=== PATIENT | male | born 1970 | race Caucasian/White ===

== ENCOUNTER 2022-08-04 08:28 | Emergency (ER) | payer BC ==
--- OUTSIDE RECORDS SUMMARY | 2022-08-04 08:31 | XMS REPORT | Continuity of Care Document ---
:1970 Author Organization [facility] t Address [address] [place] [address] Care Team Providers Name Role Phone Pcp, Patient Does Not Have A Primary Care Physician +[id number] Vaccine, Jose Smith Attending Clinician Unavailable Lexy Jackson Attending Clinician LEXY PLEITEZ Attending Clinician Unavailable Jose Short Attending Clinician Unavailable Maycol PARHAM, Fahad Attending Clinician FAHAD SEVERINO Attending Clinician Unavailable Payers Payer Name Policy Type Policy Number Effective Date Expiration Date S ource Problems This patient has no known problems. Allergies, Adverse Reactions, Alerts Allergy Allergy Status Severity Reaction(s) Onset Inactive Treating Comm ents Source Name Type Date Date Clinician NO KNOWN Drug Active Univers ALLERGIE Class ity of S [facility] Social History Social Habit Start Date Stop Date Quantity Comments Source Exposure to 2022-07-23 2022-08-02 Not sure [facility] SARS-CoV-2 (event) 00:00:00 09:38:00 [facility] Branch Sex Ass[birth year] [facility] 00:00:00 00:00:00 Smoking Status Start Date Stop Date Source Tobacco smoking consumption unknown [facility] Medications This patient has no known medications. 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 TOP BOOSTER) Influenza Virus 2022-08-02 Completed Universit y of Vaccine Quad IM, 00:00:00 [facility] dical Preserv and ABX Branch Free 6 MO-64 YRS Influenza Virus 2022-08-02 Completed Universit y of Vaccine Quad IM, 00:00:00 [facility] dical Preserv and ABX Branch Free 6 MO-64 YRS SARS-COV-2 COVID-19 2021-08-09 Completed Unive rsity of PFIZER VACCINE 00:00:00 [facility] SARS-COV-2 COVID-19 2021-08-09 Completed Unive rsity of PFIZER VACCINE 00:00:00 [facility] SARS-COV-2 COVID-19 2021-01-20 Completed Unive rsity of PFIZER VACCINE 00:00:00 [facility] SARS-COV-2 COVID-19 2021-01-20 Completed Unive rsity of PFIZER VACCINE 00:00:00 [facility] SARS-COV-2 COVID-19 2020-12-30 Completed Unive rsity of PFIZER VACCINE 00:00:00 [facility] SARS-COV-2 COVID-19 2020-12-30 Completed Unive rsity of PFIZER VACCINE 00:00:00 [facility] FLUCELVAX QUAD PF 2019-06-[address] 00:00:00 Hospital Procedures Procedure Date / Time Performed Performing Clinician Case ni SARS-COV-2 COVID-19 2022-08-03 15:04:26 Doctor Unassigned, [facility] Name [facility] 5YRS-11[facility], BIVALENT 0.2ML,IM (PFIZER-ORANGE TOP BOOSTER) FLU VACC (2210-1986), 2022-08-02 15:08:55 Doctor Unassigned, No [facility] 6 MO-64 YRS, .5ML, Name Medical [facility] h IM, QUAD (FLUCELVAX) Plan of Care Planned Activity Planned Date Details Comments Source Future Scheduled 2022-08-01 HEPATITIS B VACCINES [facility] Test 13:45:16 (1 of 3 - 3-dose series) [code = HEPATITIS B VACCINES (1 of 3 - 3-dose series)] Future Scheduled 2022-08-01 COVID-19 VACCINE (#1) [facility] Test 13:45:16 [code = COVID-19 VACCINE (#1)] Future Scheduled 2022-08-01 COLONOSCOPY SCREENING [facility] Test 13:45:16 [code = COLONOSCOPY SCREENING] Future Scheduled 2022-08-01 SHINGLES VACCINES (1 Met [facility] Test 13:45:16 of 2) [code = SHINGLES VACCINES (1 of 2)] Future Scheduled 2022-08-01 INFLUENZA VACCINE Method [facility] Test 13:45:16 [code = INFLUENZA VACCINE] Encounters Start End Encounter Admission Attending Care Care Encounter Source Date/Time Date/Time Type Type Clinicians Facility Department ID 2022-08-03 2022-08-03 Imm/Inj Vaccine, Ang Db [facility] [id number] Univers 11:10:00 11:20:00 Visit Lexy Pleitez [facility] [id number] ity of [place] [id number] Rob as LAURI?BLEA [id number] [address] MEDICAL OFFICE BUILDING 2022-08-03 2022-08-03 Outpatient R PRICILLA [facility] [id number] Univers 11:10:00 11:10:00 LEXY cai o f [facility] 2022-08-02 2022-08-02 Imm/Inj Nurse, Ang Db [facility] [id number] Univers 10:20:00 10:40:00 Visit Fahad Severino [facility] [id number] ity of [place] [id number] Rob as LAURI?BLEA [id number] [address] MEDICAL OFFICE BUILDING 2022-08-02 2022-08-02 [facility] [id number] Univers 10:20:00 10:20:00 FAHAD cai [facility] Results This patient has no known results.
[2022-08-04 09:42] LABS: Absolute Lymphocytes (CBC) 0.9 K/uL (0.7-4.9); Hematocrit 49.5 % (39.6-49.0); MCV 89.3 fL (80-100); MPV 7.6 fL (7.6-11.3); RBC Red Blood Cell Count 5.54 M/uL (4.33-5.43)
[2022-08-04 09:59] LABS: Potassium 3.9 mmol/L (3.5-5.1); Troponin High Sensitivity 10.4 pg/mL (<58.9)
--- NOTE | 2022-08-04 10:10 | RAD REPORT ---
EXAM DESCRIPTION: RAD - Chest Single View - 08/04/2022 9:37 am CLINICAL HISTORY: CHEST PAIN Chest pain. COMPARISON: Chest Pa And Lat (2 Views) dated 04/04/2017; Chest Single View dated 12/25/2016 FINDINGS: Portable technique limits examination quality. Interstitial lung markings are mildly prominent which may indicate a viral infection or interstitial edema. The heart is normal in size. No displaced fractures.
--- NOTE | 2022-08-04 10:53 | ER ---
Nurse's Notes [facility] Name: Jose Franco Age: 52 yrs Sex: Male : 1970 Arrival Date: 08/04/2022 Time: 08:30 Bed 13 Private MD: Diagnosis: Herpes zoster;Chest pain, unspecified Presentation: 08/04 08:50 Chief complaint: Patient states: Shingles to R upper back, axilla and R upper chest x 2 ss days. Pt also reports a sharp, "hot poker" sensation that began 4 days ago to R upper chest wall. States he just got over a respiratory infection as well. Coronavirus screen: Client denies travel out of the [place] in the last 14 days. Ebola Screen: Patient denies exposure to infectious person. Patient denies travel to an Ebola-affected area in the 21 days before illness onset. Initial Sepsis Screen: Does the patient meet any 2 criteria? No. Patient's initial sepsis screen is negative. Does the patient have a suspected source of infection? No. Patient's initial sepsis screen is negative. Risk Assessment: Do you want to hurt yourself or someone else? Patient reports no desire to harm self or others. 08:50 Method Of Arrival: Ambulatory ss 08:50 Acuity: DONN 3 ss 11:22 Onset of symptoms was August 02, 2022. db Triage Assessment: 11:22 General: Appears in no apparent distress. comfortable. db Historical: - Home Meds: 08:53 Augmentin 875-125 mg Oral tab 1 tab every 12 hours [Active]; prednisone 10 mg Oral tab ss once daily [Active]; trelegy [Active]; Flonase Nasal [Active]; Albuterol Inhl [Active]; - PMHx: 08:53 allergies; Asthma; NASAL POLYPS; ss - Immunization history:: Client reports receiving the 2nd dose of the Covid vaccine. - Social history:: Smoking status: Patient denies any tobacco usage or history of. Screenin:15 Abuse screen: Denies threats or abuse. Denies injuries from another. Nutritional db screening: No deficits noted. Tuberculosis screening: No symptoms or risk factors identified. 09:38 Fall Risk None identified. No fall in past 12 months (0 pts). No secondary diagnosis (0 db pts). IV access (20 points). Ambulatory Aid- None/Bed Rest/Nurse Assist (0 pts). Gait- Normal/Bed Rest/Wheelchair (0 pts) Mental Status- Oriented to own ability (0 pts). Total Pineda Fall Scale indicates No Risk (0-24 pts). Assessment: 09:15 Reassessment: Patient appears in no apparent distress at this time. Patient and/or db family updated on plan of care and expected duration. Pain level reassessed. Patient is alert, oriented x 3, equal unlabored respirations, skin warm/dry/pink. rash to right chest from "shingles" per patient. Noted it is raised. States he has sharp intermittent chest pain. General: Appears in no apparent distress. comfortable, Behavior is calm, cooperative, appropriate for age. Pain: Complains of pain in right upper chest. Neuro: No deficits noted. Level of Consciousness is awake, alert, obeys commands, Oriented to person, place, time, situation, Appropriate for age Speech is normal, Facial symmetry appears normal. Cardiovascular: No deficits noted. Respiratory: No deficits noted. GI: No deficits noted. No signs and/or symptoms were reported involving the gastrointestinal system. : No deficits noted. No signs and/or symptoms were reported regarding the genitourinary system. EENT: No deficits noted. No signs and/or symptoms were reported regarding the EENT system. Vital Signs: 08:50 BP 159 / 107; Pulse 102; Resp 17; Temp 98.5(TE); Pulse Ox 98% on R/A; Weight 108.86 kg; Height 5 ft. 9 in. (175.26 cm); Pain 2/10; 09:15 BP 132 / 88; Pulse 82; Resp 14; Pulse Ox 95% on R/A; db 11:00 BP 136 / 90; Pulse 78; Resp 16; Pulse Ox 100% on R/A; db 08:50 Body Mass Index 35.44 (108.86 kg, 175.26 cm) Vitals: 11:00 Cardiac Rhythm Assessment Regular Sinus rhythm. ED Course: 08:30 Patient arrived in ED. rg4 08:38 Benigno Estrada DO is Attending Physician. ms3 08:53 Triage completed. 09:18 Enid Burnham, RN is Primary Nurse. db 09:20 Inserted saline lock: 20 gauge in right antecubital area, using aseptic technique. db Blood collected. 09:38 Patient has correct armband on for positive identification. Bed in low position. Call db light in reach. Side rails up X 1. 09:39 XRAY Chest (1 view) In Process Unspecified. EDMS 11:21 IV discontinued, intact, bleeding controlled, No redness/swelling at site. db 11:21 No provider procedures requiring assistance completed. db 11:22 Arm band placed on right wrist. Patient placed in an exam room. db Administered Medications: No medications were administered Medication: 09:15 VIS not applicable for this client. db Outcome: 10:52 Discharge ordered by . ms3 11:21 Discharged to home ambulatory, with family. db 11:21 Condition: stable 11:21 Discharge instructions given to patient, significant other, Instructed on discharge instructions, follow up and referral plans. Prescriptions given X 2. 11:23 Patient left the ED. db Signatures: Dispatcher [employer] EDMS Kiya Hurtado, RN RN Gabby Laughlin rg4 Benigno Estrada, DO ms3 Enid Burnham, RN RN db
--- NOTE | 2022-08-04 10:53 | EDPHYS ---
Physician Documentation [facility] Name: Jose Franco Age: 52 yrs Sex: Male : 1970 Arrival Date: 08/04/2022 Time: 08:30 Bed 13 Private MD: ED Physician Benigno Estrada HPI: 08/04 10:46 This 52 yrs old Male presents to ER via Ambulatory with complaints of Pain When ms3 Breathing, Shingles. 10:46 The patient or guardian reports chest pain that is located primarily in the anterior ms3 chest wall, right. Onset: 5 day(s) ago. The pain does not radiate. Associated signs and symptoms: The patient has no apparent associated signs or symptoms. The chest pain is described as burning. Modifying factors: The symptoms are alleviated by nothing. the symptoms are aggravated by deep breath. Severity of pain: At its worst the pain was moderate in the emergency department the pain is unchanged. Historical: - Home Meds: 08:53 Augmentin 875-125 mg Oral tab 1 tab every 12 hours [Active]; prednisone 10 mg Oral tab ss once daily [Active]; trelegy [Active]; Flonase Nasal [Active]; Albuterol Inhl [Active]; - PMHx: 08:53 allergies; Asthma; NASAL POLYPS; ss - Immunization history:: Client reports receiving the 2nd dose of the Covid vaccine. - Social history:: Smoking status: Patient denies any tobacco usage or history of. ROS: 10:46 Constitutional: Negative for fever, and chills. Neck: Negative for injury, pain, and ms3 swelling. 10:46 Respiratory: Negative for shortness of breath, cough, wheezing, and pleuritic chest pain, Abdomen/GI: Negative for abdominal pain, nausea, vomiting, diarrhea, and constipation, MS/Extremity: Negative for injury and deformity. 10:46 Cardiovascular: Positive for chest pain. 10:46 Skin: Positive for rash. 10:46 All other systems are negative. Exam: 10:46 Constitutional: This is a well developed, well nourished patient who is awake, alert, ms3 and in no acute distress. Head/Face: Normocephalic, atraumatic. Neck: Trachea midline, no cervical lymphadenopathy. Supple, full range of motion without nuchal rigidity, or vertebral point tenderness. No Meningismus. 10:46 Skin: rash a moderate rash is noted, zoster, on the right chest. 10:54 ECG was reviewed by the Attending Physician. ms3 Vital Signs: 08:50 BP 159 / 107; Pulse 102; Resp 17; Temp 98.5(TE); Pulse Ox 98% on R/A; Weight 108.86 kg; ss Height 5 ft. 9 in. (175.26 cm); Pain 2/10; 09:15 BP 132 / 88; Pulse 82; Resp 14; Pulse Ox 95% on R/A; db 11:00 BP 136 / 90; Pulse 78; Resp 16; Pulse Ox 100% on R/A; db 08:50 Body Mass Index 35.44 (108.86 kg, 175.26 cm) ss MDM: 08:50 Patient medically screened. ms3 10:49 Differential diagnosis: abnormal EKG, chest wall pain, shingles. Data reviewed: vital ms3 signs, nurses notes, lab test result(s), EKG, radiologic studies. 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 Counseling: I had a detailed discussion with the patient and/or guardian regarding: the historical points, exam findings, and any diagnostic results supporting the discharge/admit diagnosis, lab results, radiology results, the need for outpatient follow up, to return to the emergency department if symptoms worsen or persist or if there are any questions or concerns that arise at home. ED course: Discussed labs, EKG, chest x-ray with patient and his . They understand and agree with plan. All questions were answered. Return precautions discussed include worsening symptoms, or any other concerns. On reevaluation patient is alert and oriented x4, in no apparent distress, nontoxic, ambulatory Emergency Department, speaking full sentences. 08/04 08:51 Order name: Basic Metabolic Panel; Complete Time: 10:16 ms3 08/04 08:51 Order name: CBC with Diff; Complete Time: 10:16 ms3 08/04 08:51 Order name: Troponin HS; Complete Time: 10:16 ms3 08/04 08:51 Order name: XRAY Chest (1 view); Complete Time: 10:16 ms3 08/04 08:51 Order name: EKG; Complete Time: 08:52 ms3 11/06 08:51 Order name: Cardiac monitoring; Complete Time: 09:36 ms3 08/04 08:51 Order name: EKG - Nurse/Tech; Complete Time: 09:36 ms3 08/04 08:51 Order name: IV Saline Lock; Complete Time: 09:36 ms3 08/04 08:51 Order name: Labs collected and sent; Complete Time: 09:36 ms3 08/04 08:51 Order name: O2 Per Protocol; Complete Time: 09:36 ms3 08/04 08:51 Order name: O2 Sat Monitoring; Complete Time: 09:36 ms3 EC:54 Rate is 76 beats/min. Rhythm is regular. QRS [place] is Normal. AL interval is normal. QRS ms3 interval is normal. QT interval is normal. Clinical impression: Normal ECG. Interpreted by me. Reviewed by me. Administered Medications: No medications were administered Disposition Summary: 08/04/22 10:52 Discharge Ordered Location: Home ms3 Condition: Stable ms3 Diagnosis - Herpes zoster ms3 - Chest pain, unspecified ms3 Followup: ms3 - With: Private Physician - When: 2 - 3 days - Reason: Recheck today's complaints Discharge Instructions: - Discharge Summary Sheet ms3 - Nonspecific Chest Pain, Adult ms3 - Shingles, Abos-mb-Glym ms3 Forms: - Medication Reconciliation Form ms3 - Thank You Letter ms3 - Antibiotic Education ms3 - Prescription Opioid Use ms3 Prescriptions: - lidocaine 5 % Topical adhesive patch,medicated - apply 1 patch by TRANSDERMAL route once daily; 15 patch; Refills: 0, Product ms3 Selection Permitted - valacyclovir 1 gram Oral tablet - take 1 tablet by ORAL route every 8 hours; 21 tablet; Refills: 0, Product ms3 Selection Permitted Signatures: Dispatcher [employer] Kiya Paulson RN RN Benigno Lombardo DO DO ms3
[2022-08-04 11:33] VITALS: TEMP 98.5
[2022-08-04 11:49] VITALS: BP 136/90; O2SAT 100
--- NOTE | 2022-08-05 12:14 | EKG ---
Test Date: 2022-08-04 Test Time: 09:25:11 Oil Dipper: TIM MEASUREMENT RESULTS: Intervals: Rate: 76 VA: 166 QRSD: 86 QT: 362 QTc: 407 [place]: P: 30 VA: 166 QRS: -10 T: 40 INTERPRETIVE STATEMENTS: Normal sinus rhythm Normal ECG No previous ECG available for comparison Electronically Signed On 08-05-22 12:11:48 SHIRT SORTER by Marcel Keita
== END 2022-08-04 11:23 | disposition home or self-care (01) ==
LOC: ER 08:28
DX: B02.9 Zoster without complications (principal); R07.89 Other chest pain; J45.909 Unspecified asthma, uncomplicated
CPT/HCPCS: 36415; 71045; 80048; 84484; 85025; 93005; 99284